=== PATIENT | male | born 1990 | race Caucasian/White ===

== ENCOUNTER 2020-11-04 10:04 | Emergency (ER) | payer SELFPAY ==
[~2020-11-04] VITALS: Ht 188 cm; Wt 100.0 kg
[~2020-11-04 10:04] MED LIST: ONDA4TAB10 PO
[2020-11-04 10:26] VITALS: BP 138/108
--- NOTE | 2020-11-04 10:26 | PHYS DOC ---
Past History Past Medical History: No Pertinent History Past Surgical History: No Surgical History Alcohol Use: None Drug Use: Marijuana, Methamphetamine Adult General Chief Complaint Chief Complaint: LOWER EXT PAIN HPI HPI Patient is a 29-year-old male who presents via EMS for right lower extremity cramp. Reports he took a cab to [place] [employer]. States "someone was following me" and so patient ran "at least a mile or 2" into local convenience store. Patient who ran into store any acute distress requested for ambulance/police authorities be notified to come get him and transported him to our facility for evaluation. Denies any known medical issues, takes no meds on a daily basis, admits to marijuana use only. Per police, patient is a known methamphetamine abuser. On arrival to our ER, patient complaining of transient right lower extremity cramp that occurred after extended time running. Has no other symptoms. Is not wanting us to do any work-up at this time, does not want any IV placed Review of Systems Review of Systems Fourteen body systems of review of systems have been reviewed. See HPI for pertinent positives and negative responses, other suarez all other systems are negative, non-pertinent or non-contributory Allergies Allergies Allergies Coded Allergies Type Severity Reaction Last Updated Verified No Known Drug Allergies 07/04/14 No Physical Exam Physical Exam Constitutional: Well developed, well nourished, nontoxic appearing. Appears disheveled and extremely anxious, appears under the influence of unknown substance HENT: Normocephalic, atraumatic, bilateral external ears normal, oropharynx dry, no oral exudates, nose normal. Eyes: PERRLA, EOMI, conjunctiva normal, no discharge. Neck: Normal range of motion, no tenderness, supple, no stridor. Cardiovascular: Heart rate tachycardic, sinus rhythm, no murmurs rubs or gallops Lungs & Thorax: Bilateral breath sounds clear to auscultation Abdomen: Bowel sounds normal, soft, no tenderness, no masses, no pulsatile masses. Nonsurgical abdomen, no peritoneal signs Skin: Warm, dry, no erythema, no rash. Back: No tenderness, no CVA tenderness. Extremities: No tenderness, no cyanosis, no clubbing, ROM intact, no edema. Neurologic: Alert and oriented X 3, grossly normal motor & sensory function, no focal deficits noted. Psychologic: Anxious affect and mood EKG EKG [] Radiology/Procedures Radiology/Procedures [] Heart Score HEART Score for Chest Pain: HEART Score for Chest Pain Response (Comments) Value History Slighlty/Non-Suspicious 0 Age < 45 0 Risk Factors 1 or 2 Risk Factors 1 Total 1 Risk Factors: Risk Factors: DM, Current or recent (<one month) smoker, HTN, HLP, family history of CAD, obesity. Risk Scores: Risk Factors: DM, Current or recent (<one month) smoker, HTN, HLP, family history of CAD, obesity. Course & Med Decision Making Course & Med Decision Making Patient seen on immediate ER arrival. After comprehensive history and physical exam, patient refused to have further diagnostic work-up performed. Patient refused placement of IV and states "I just want you to fix my leg, I do not want any labs or stuff ". I had an extensive discussion with the patient regarding the risks of leaving AMA including but not limited to , permanent disability, and worsening condition. Pt acknowledged the risks and agreed to take full responsibility. Pt was A&Ox4 and had full medical decision making capacity when they signed the AMA sheet. Risks and Recommendations: The risks of refusing recommended care that were disclosed and acknowledged by the patient include loss of current lifestyle, permanent mental impairment, and . The recommended medical care being refused has been discussed with the patient and is to stay for continued monitoring, workup, and possible treatment. Discharge Care: The patient understands they are welcome to return to the hospital at any time to receive the recommended care or any other care at any time, regardless of their ability to pay for such care. Dragon Disclaimer Dragon Disclaimer This electronic medical record was generated, in whole or in part, using a voice recognition dictation system. Departure Departure: Impression: Primary Impression: Left against medical advice Additional Impressions: Cramps of right lower extremity Tachycardia Disposition: AMA/ELOPED/LWBS Condition: STABLE Referrals: PCP,NO (PCP) Problem Qualifiers YOVANI GUERRERO DO Nov 04, 2020 10:26
== END 2020-11-04 10:20 | disposition left against medical advice (07) ==
LOC: ER 10:04
DX: M79.661 Pain in right lower leg (principal); R00.0 Tachycardia, unspecified; R25.2 Cramp and spasm; F12.90 Cannabis use, unspecified, uncomplicated; F15.90 Other stimulant use, unspecified, uncomplicated
CPT/HCPCS: 99283

== ENCOUNTER 2020-11-04 18:16 | Emergency (ER) | payer SELFPAY ==
[~2020-11-04] VITALS: Ht 188 cm; Wt 100.0 kg
[2020-11-04] MEDS ORDERED: IV RINGERS SOLUTION,LACTATED 1,000 ML IV ONE ×2 (19:30→23:00)
[2020-11-04 19:47] LABS: BASO % 0 % (0-3); EOS % 0 % (0-3); HEMATOCRIT 51.1 % (39.0-53.0); HEMOGLOBIN 17.3 g/dL (13.0-17.5); LYMPH # 1.8 x10^3/uL (1.0-4.8); LYMPH % 8 % (24-48); MEAN CORPUSCULAR HEMOGLOBIN 30 pg (25-35); MEAN CORPUSCULAR HGB CONC 34 g/dL (31-37); MEAN CORPUSCULAR VOLUME 90 fL (79-100); MONO # 2.2 x10^3/uL (0.0-1.1); MONO % 10 % (0-9); NEUT # 17.6 x10^3uL (1.8-7.7); NEUT % 81 % (31-73); PLATELET COUNT 258 x10^3/uL (140-400); RED CELL DISTRIBUTION WIDTH 12.4 % (11.5-14.5); WHITE BLOOD COUNT 21.6 x10^3/uL (4.0-11.0)
[2020-11-04 19:59] LABS: CREATININE 1.2 mg/dL (0.7-1.3); GFR 71.6; POTASSIUM 4.2 mmol/L (3.5-5.1)
[2020-11-04 20:00] LABS: BARBITURATES NEG (NEG); BENZODIAZEPINES NEG (NEG); CANNABINOIDS POS (NEG); COCAINE NEG (NEG); METHADONE NEG (NEG); OPIATES NEG (NEG); PHENCYCLIDINE NEG (NEG)
[2020-11-04 20:03] LABS: AMPHETAMINE/METHAMPHETAMINE POS (NEG)
[2020-11-04 20:05] LABS: ALBUMIN 3.9 g/dL (3.4-5.0); ALBUMIN/GLOBULIN RATIO 0.9 (1.0-1.7); TOTAL BILIRUBIN 2.2 mg/dL (0.2-1.0); TOTAL PROTEIN 8.4 g/dL (6.4-8.2)
--- NOTE | 2020-11-04 20:06 | PHYS DOC ---
Past History Past Medical History: No Pertinent History Past Surgical History: No Surgical History Alcohol Use: None Drug Use: Marijuana, Methamphetamine Adult General Chief Complaint Chief Complaint: PSYCH EVALUATION HPI HPI Patient is a 29-year-old male who presents with a chief complaint of anxiety and insomnia. States that his father on and since then has been on a substance abuse binge including marijuana, alcohol and methamp hetamine. States that he did smoke quite a bit of methamphetamine yesterday and is having a hard time sleeping. States he is also had some anxiety, and palpitations. Denies SI, HI or hallucinations. His friend who brought him in however thinks that he may have been having auditory hallucinations as he was hearing things while he was at his house that were not there but is not sure. Patient adamantly denies any audio, visual or tactile hallucinations. States he has not eaten anything in a few days and has not really had any thing to drink either. Denies any actual chest pain, shortness of breath, abdominal pain, nausea, vomiting, diarrhea. Denies any numbness/weakness/tingling. Denies any recent traumas, illnesses, fevers or known ill contacts. Review of Systems Review of Systems Review of systems otherwise unremarkable except noted in HPI. Current Medications Current Medications Current Medications Medications (Trade) Dose Ordered Sig/Rosa Start Time Stop Time Status Last Admin Dose Admin Lactated Ringer's 1,000 ml @ 1,000 mls/hr 1X ONCE 11/04/20 19:30 11/04/20 20:29 Lorazepam (Ativan Inj) 2 mg 1X ONCE 11/04/20 19:30 11/04/20 19:36 DC 11/04/20 19:28 2 MG Allergies Allergies Allergies Coded Allergies Type Severity Reaction Last Updated Verified No Known Drug Allergies 07/04/14 No Physical Exam Physical Exam Constitutional: Well developed, well nourished, no acute distress, non-toxic ap pearance. [] HENT: Normocephalic, atraumatic, bilateral external ears normal, oropharynx moist, no oral exudates, nose normal. [] Eyes: PERRLA, EOMI, conjunctiva normal, no discharge. [] Neck: Normal range of motion, no tenderness, supple, no stridor. [] Cardiovascular: Tachycardia, regular rhythm Lungs & Thorax: Bilateral breath sounds clear to auscultation [] Abdomen: Bowel sounds normal, soft, no tenderness, no masses, no pulsatile masses. [] Skin: Warm, dry, no erythema, no rash. Capillary refill approximately 3 seconds. [] Back: No tenderness, no CVA tenderness. [] Extremities: No tenderness, no cyanosis, no clubbing, ROM intact, no edema. [] Neurologic: Alert and oriented X 3, normal motor function, normal sensory function, no focal deficits noted. Psychologic: Patient anxious, agitated but cooperative,No SI, HI, hallucinations [] Current Patient Data Vital Signs Vital Signs Date Time Temp Pulse Resp B/P (MAP) Pulse Ox O2 Delivery O2 Flow Rate FiO2 11/04/20 18:58 97.0 128 26 161/115 (130) 98 Lab Results Laboratory Tests Test 11/04/20 18:47 White Blood Count 21.6 x10^3/uL (4.0-11.0) H Red Blood Count 5.70 x10^6/uL (4.30-5.70) Hemoglobin 17.3 g/dL (13.0-17.5) Hematocrit 51.1 % (39.0-53.0) Mean Corpuscular Volume 90 fL (79-100) Mean Corpuscular Hemoglobin 30 pg (25-35) Mean Corpuscular Hemoglobin Concent 34 g/dL (31-37) Red Cell Distribution Width 12.4 % (11.5-14.5) Platelet Count 258 x10^3/uL (140-400) Neutrophils (%) (Auto) 81 % (31-73) H Lymphocytes (%) (Auto) 8 % (24-48) L Monocytes (%) (Auto) 10 % (0-9) H Eosinophils (%) (Auto) 0 % (0-3) Basophils (%) (Auto) 0 % (0-3) Neutrophils # (Auto) 17.6 x10^3uL (1.8-7.7) H Lymphocytes # (Auto) 1.8 x10^3/uL (1.0-4.8) Monocytes # (Auto) 2.2 x10^3/uL (0.0-1.1) H Eosinophils # (Auto) 0.0 x10^3/uL (0.0-0.7) Basophils # (Auto) 0.0 x10^3/uL (0.0-0.2) Platelet Estimate Pending EKG EKG EKG with a rate of 121, QRS of 78, QTc of 457, no STEMI. [] Radiology/Procedures Radiology/Procedures [] Heart Score HEART Score for Chest Pain: HEART Score for Chest Pain Response (Comments) Value History Slighlty/Non-Suspicious 0 Age < 45 0 Risk Factors 1 or 2 Risk Factors 1 Total 1 Risk Factors: Risk Factors: DM, Current or recent (<one month) smoker, HTN, HLP, family history of CAD, obesity. Risk Scores: Risk Factors: DM, Current or recent (<one month) smoker, HTN, HLP, family history of CAD, obesity. Course & Med Decision Making Course & Med Decision Making Patient is a 29-year-old male who presents with anxiety, insomnia and palpitations after methamphetamine use Vital signs notable for tachycardia and hypertension. Physical exam noted above. No SI, HI or hallucinations. EKG noted. Patient placed on the monitor with IV access established and IV fluid given. Given dose of Ativan for anxiety and agitation. Laboratory analysis notable for leukocytosis mildly elevated CK but sign ificantly less than 5000 and patient has normal potassium and creatinine. Patient pulled his IV out and is refusing to allow another IV placed. Discussed with patient the need for continued fluid hydration given his elevated labs to prevent kidney injury but patient states he does not care he is not getting another IV. Patient stated he just wanted to sleep. Patient allowed to sleep in the emergency department for several hours. At approximately the 7-1/2 to 8- hour becky patient was awake and able to take p.o. in the form of Dr. Miller, 2 cups of water some chips and a candy bar. Patient stated he was feeling much better after the sleep. Discussed again the need for some IV fluid hydration and elevated ck as well as leukocytosis, but patient stated he was fine and wanted to call his uncle to be discharged home. Discussed the risks of elevated white blood cell count, CK and possibility of infection and renal damage. On reassessment, vital signs improved significantly. Patient stated he would just drink plenty of fluids, eat healthy and quit using methamphetamine. Advised to follow-up as soon as he can with a primary care physician and set up a post ER follow-up visit. Patient grateful for ER care, verbalized understanding and agreed with plan of discharge. [] Dragon Disclaimer Dragon Disclaimer This electronic medical record was generated, in whole or in part, using a voice recognition dictation system. Departure Departure: Disposition: 01 DC HOME SELF CARE/HOMELESS Condition: GOOD Referrals: PCP,NOEL (PCP) VERONIKA PAPPAS MD Nov 04, 2020 20:05
[2020-11-04 20:28] LABS: BILIRUBIN,URINE MOD (NEG); CLARITY,URINE CLEAR; COLOR,URINE BROWN; GLUCOSE,URINE NEG (NEG); NITRITE,URINE POS (NEG)
[2020-11-04 20:29] LABS: BACTERIA,URINE MOD /HPF (0-FEW); SQUAMOUS EPITHELIAL CELL,UR MOD /LPF
[2020-11-04 22:09] LABS: % LYMPHS 7 % (24-48); % MONOS 10 % (0-10); % SEGS 83 % (35-66); PLT ESTIMATE ADEQUATE (ADEQUATE)
--- NOTE | 2020-11-05 01:50 | EKG ---
[facility] ED [facility] [place] [id number] Test Date: 2020-11-04 Test Time: 18:42:27 Pat Name: JOSELO JACKSON Department: Room: Gender: M Analytical Lead: : 1990 Requested By: VERONIKA PAPPAS Order Number: [id number] Reading MD: Measurements Intervals [place] Rate: 121 P: 49 IA: 118 QRS: 34 QRSD: 78 T: 66 QT: 320 QTc: 457 Interpretive Statements SINUS TACHYCARDIA LEFT ATRIAL ABNORMALITY ABNORMAL ECG RI6.02 No previous ECG available for comparison
[2020-11-05 02:00] VITALS: BP 141/105
== END 2020-11-05 02:55 | disposition home or self-care (01) ==
LOC: ER 18:16
DX: F41.8 Other specified anxiety disorders (principal); R00.2 Palpitations; G47.00 Insomnia, unspecified; F12.90 Cannabis use, unspecified, uncomplicated; F15.90 Other stimulant use, unspecified, uncomplicated
CPT/HCPCS: 36415; 80053; 80307; 81001; 82550; 84484; 85007; 85025; 87086; 93005; 96374; 96376; 99284; J2060; J7120

== ENCOUNTER 2020-11-05 18:05 | Emergency (ER) | payer SELFPAY ==
[~2020-11-05] VITALS: Ht 188 cm; Wt 112.8 kg
--- NOTE | 2020-11-05 18:55 | PHYS DOC ---
Past History Past Medical History: No Pertinent History Past Surgical History: No Surgical History Alcohol Use: None Drug Use: Marijuana, Methamphetamine Adult General Chief Complaint Chief Complaint: SUICIDAL IDEATION HPI HPI Patient is a 29-year-old male presents emergency department reporting that he would like psychiatric treatment. Patient does deny homicidal or suicidal ideation. Patient states that he has used marijuana and meth in the past, patie nt states that he recently lost his father on October 20, 2020 and just buried him last . Patient states that he has gone in a downward mcgrath since then. Patient denies any recent fever chills, chest pains, cough, congestion, shortness of breath, lesions of his skin, skin rashes, abdominal pains, nausea, vomiting, or diarrhea. Patient denies any physical ailments, patient states that he has mental health problems and he is seeking help to get his life back on track. Patient did have his friend in the room who indicated that he was both suicidal and homicidal. Patient was adamant that he is not homicidal nor was he suicidal. Review of Systems Review of Systems 14 body systems of review of systems have been reviewed. See HPI for pertinent positives and negative responses, otherwise all other systems are negative, nonpertinent or noncontributory. Allergies Allergies Allergies Coded Allergies Type Severity Reaction Last Updated Verified No Known Drug Allergies 07/04/14 No Physical Exam Physical Exam Constitutional: Well developed, well nourished, no acute distress, non-toxic appearance. HENT: Normocephalic, atraumatic, bilateral external ears normal, oropharynx moist, no oral exudates, nose normal. Eyes: PERRLA, EOMI, conjunctiva normal, no discharge. Neck: Normal range of motion, no tenderness, supple, no stridor. Cardiovascular:Heart rate regular rhythm, no murmur Lungs & Thorax: Bilateral breath sounds clear to auscultation Abdomen: Bowel sounds normal, soft, no tenderness, no masses, no pulsatile masses. Skin: Warm, dry, no erythema, no rash. Back: No tenderness, no CVA tenderness. Extremities: No tenderness, no cyanosis, no clubbing, ROM intact, no edema. Neurologic: Alert and oriented X 3, normal motor function, normal sensory function, no focal deficits noted. Psychologic: Affect flat, and a depressive type state, judgment abnormal as evidenced by methamphetamine use to cope with family loss. Current Patient Data Vital Signs Vital Signs Date Time Temp Pulse Resp B/P (MAP) Pulse Ox O2 Delivery O2 Flow Rate FiO2 11/05/20 18:23 98.1 112 16 158/86 (110) 98 Room Air Lab Results Laboratory Tests Test 11/05/20 18:44 11/05/20 19:10 White Blood Count 16.9 x10^3/uL Red Blood Count 5.61 x10^6/uL Hemoglobin 17.0 g/dL Hematocrit 50.4 % Mean Corpuscular Volume 90 fL Mean Corpuscular Hemoglobin 30 pg Mean Corpuscular Hemoglobin Concent 34 g/dL Red Cell Distribution Width 12.6 % Platelet Count 245 x10^3/uL Neutrophils (%) (Auto) 79 % Lymphocytes (%) (Auto) 12 % Monocytes (%) (Auto) 9 % Eosinophils (%) (Auto) 0 % Basophils (%) (Auto) 1 % Neutrophils # (Auto) 13.3 x10^3uL Lymphocytes # (Auto) 2.0 x10^3/uL Monocytes # (Auto) 1.5 x10^3/uL Eosinophils # (Auto) 0.0 x10^3/uL Basophils # (Auto) 0.1 x10^3/uL Platelet Estimate Pending Sodium Level 132 mmol/L Potassium Level 4.4 mmol/L Chloride Level 95 mmol/L Carbon Dioxide Level 26 mmol/L Anion Gap 11 Blood Urea Nitrogen 23 mg/dL Creatinine 1.0 mg/dL Estimated GFR (Cockcroft-Gault) 88.3 BUN/Creatinine Ratio 23 Glucose Level 88 mg/dL Calcium Level 9.0 mg/dL Total Bilirubin 1.7 mg/dL Aspartate Amino Transf (AST/SGOT) 99 U/L Alanine Aminotransferase (ALT/SGPT) 50 U/L Alkaline Phosphatase 80 U/L Total Protein 8.2 g/dL Albumin 3.8 g/dL Albumin/Globulin Ratio 0.9 Salicylates Level 3.7 mg/dL Salicylate Last Dose Date 11/05/20 Salicylate Last Dose Time 1830 Urine Opiates Screen Neg Urine Methadone Screen Neg Acetaminophen Level < 2.0 mcg/mL Acetaminophen Last Dose Date 11/05/20 Acetaminophen Last Dose Time 1830 Urine Barbiturates Neg Urine Phencyclidine Screen Neg Urine Amphetamine/Methamphetamine Pos Urine Benzodiazepines Screen Neg Urine Cocaine Screen Neg Urine Cannabinoids Screen Pos Ethyl Alcohol Level < 10 mg/dL Urine Ethyl Alcohol Neg SARS-CoV-2 Antigen (Rapid) Negative EKG EKG [] Radiology/Procedures Radiology/Procedures [] Heart Score Risk Factors: Risk Factors: DM, Current or recent (<one month) smoker, HTN, HLP, family history of CAD, obesity. Risk Scores: Risk Factors: DM, Current or recent (<one month) smoker, HTN, HLP, family history of CAD, obesity. Course & Med Decision Making Course & Med Decision Making Pertinent Labs and Imaging studies reviewed. (See chart for details) 29-year-old presents emergency department seeking psychiatric help. Patient states his father on 2019. Buried him last . Has gone a downward spiral since then. Patient admits of smoking marijuana and using methamphetamines. Patient states that he fears some of the drug dealers he has purchased his illicit drugs through our coming after him. Patient denies homicidal or suicidal ideations. Patient did have a friend in the room who stated he was there for support, this friend stated that the patient is in fact suicidal and homicidal. Patient lives with his aunt and uncle. I interviewed and medical aunts name Larisa Moya states that the patient told her directly he stated to her "I will not make it to age 30 just wait and see ", patient's uncle Giorgi Moya stated the patient told him "I will not be around much longer ". Both the patient's had medical fear that the patient is making the statements as statements of suicidal ideation. A psychiatric work-up was initiated in the emergency department to include labs, urine assay. Discussed patient case with PAT lift team technician Ghassan whom stated she would interview the patient and initiate care after her assessment. Discussed with PAT lift team technician Ghassan who stated the patient meets mental health treatment criteria and will attempt to secure placement at [facility], patient does not meet involuntary placement at this time as he is voluntarily admitting himself into mental health treatment. Awaiting acceptance from the [facility] at this time. Reviewed and discussed patient case with ED attending Dr. Peña. Patient is awaiting placement at [facility]. Dr. Peña has assumed patient care at this time. Dragon Disclaimer Dragon Disclaimer This electronic medical record was generated, in whole or in part, using a voice recognition dictation system. Departure Departure: Referrals: PCP,NOEL (PCP) JOSELO MCCORMACK APRN Nov 05, 2020 18:55
[2020-11-05 19:14] LABS: GFR 88.3; POTASSIUM 4.4 mmol/L (3.5-5.1)
[2020-11-05 19:15] LABS: BASO # 0.1 x10^3/uL (0.0-0.2); BASO % 1 % (0-3); EOS % 0 % (0-3); HEMATOCRIT 50.4 % (39.0-53.0); LYMPH % 12 % (24-48); MEAN CORPUSCULAR HEMOGLOBIN 30 pg (25-35); MEAN CORPUSCULAR HGB CONC 34 g/dL (31-37); MEAN CORPUSCULAR VOLUME 90 fL (79-100); MONO # 1.5 x10^3/uL (0.0-1.1); MONO % 9 % (0-9); NEUT # 13.3 x10^3uL (1.8-7.7); NEUT % 79 % (31-73); PLATELET COUNT 245 x10^3/uL (140-400); RED BLOOD COUNT 5.61 x10^6/uL (4.30-5.70); RED CELL DISTRIBUTION WIDTH 12.6 % (11.5-14.5); WHITE BLOOD COUNT 16.9 x10^3/uL (4.0-11.0)
[2020-11-05 19:16] LABS: BARBITURATES NEG (NEG); BENZODIAZEPINES NEG (NEG); CANNABINOIDS POS (NEG); COCAINE NEG (NEG); METHADONE NEG (NEG); OPIATES NEG (NEG); PHENCYCLIDINE NEG (NEG)
[2020-11-05 19:17] LABS: AMPHETAMINE/METHAMPHETAMINE POS (NEG)
[2020-11-05 19:18] LABS: ACETAMIN < 2.0 mcg/mL (10-30); SALIC 3.7 mg/dL (2.8-20.0)
[2020-11-05 19:19] LABS: ETHANOL < 10 mg/dL (0-10)
[2020-11-05 19:20] LABS: ALBUMIN 3.8 g/dL (3.4-5.0); ALBUMIN/GLOBULIN RATIO 0.9 (1.0-1.7); TOTAL BILIRUBIN 1.7 mg/dL (0.2-1.0); TOTAL PROTEIN 8.2 g/dL (6.4-8.2)
[2020-11-05 22:02] LABS: % LYMPHS 10 % (24-48); % MONOS 6 % (0-10); % SEGS 84 % (35-66)
[2020-11-05 22:03] LABS: PLT ESTIMATE ADEQUATE (ADEQUATE)
[2020-11-06 08:06] VITALS: BP 146/88
[2020-11-06] MEDS ORDERED: NICOTINE 14MG PATCH. TD PRN (08:15)
[2020-11-06] MEDS ORDERED: NICOTINE 21MG PATCH. TD ONE (08:17)
== END 2020-11-06 08:26 ==
LOC: ER 18:05
DX: Z00.8 Encounter for other general examination (principal); F12.10 Cannabis abuse, uncomplicated; F15.10 Other stimulant abuse, uncomplicated; Z20.822 Contact with and (suspected) exposure to COVID-19
CPT/HCPCS: 36415; 80053; 80307; 80329; 85007; 85025; 87426; 99285; C9803; G0480; U0003

== ENCOUNTER 2021-04-02 02:13 | Emergency (ER) | payer SELFPAY ==
[~2021-04-02] VITALS: Ht 188 cm; Wt 112.8 kg
[2021-04-02 02:19] VITALS: BP 149/100
[2021-04-02] MEDS ORDERED: CEPH500C PO (02:41)
--- NOTE | 2021-04-02 02:42 | PHYS DOC ---
Past History Past Medical History: No Pertinent History Past Surgical History: No Surgical History Alcohol Use: None Drug Use: Marijuana, Methamphetamine Adult General Chief Complaint Chief Complaint: LOWER EXTREMITY SWELLING HPI HPI Patient is a 30-year-old homeless male who presents to the emergency department with a chief complaint of redness, and swelling in his right lower extremity. States he is homeless and walks around a lot in his shoes do not fit well and he has a blister on right heel that started a couple days ago. Denies any fevers, chest pain, shortness of breath, abdominal pain, nausea, vomiting. Did request something to drink and a call to help [facility] [place] Review of Systems Review of Systems Review of systems otherwise unremarkable except noted in HPI Allergies Allergies Allergies Coded Allergies Type Severity Reaction Last Updated Verified No Known Drug Allergies 07/04/14 No Physical Exam Physical Exam Constitutional: Well developed, well nourished, no acute distress, non-toxic appearance. [] HENT: Normocephalic, atraumatic, Eyes: conjunctiva normal, no discharge. [] Cardiovascular:Heart rate regular rhythm, no murmur [] Lungs & Thorax: No respiratory distress Skin: Warm, dry, no erythema, no rash. [] Extremities: Mild right lower extremity erythema at and around the right ankle with a 2 cm blister that has burst. Neurovascular exam intact. Range of motion intact. Neurologic: Alert and oriented X 3, no focal deficits noted. [] Psychologic: Affect normal, judgement normal, mood normal. [] EKG EKG [] Radiology/Procedures Radiology/Procedures [] Heart Score C/O Chest Pain: No Risk Factors: Risk Factors: DM, Current or recent (<one month) smoker, HTN, HLP, family history of CAD, obesity. Risk Scores: Risk Factors: DM, Current or recent (<one month) smoker, HTN, HLP, family history of CAD, obesity. Course & Med Decision Making Course & Med Decision Making Patient is a 30-year-old male who presents with right lower extremity cellulitis Vital signs not concerning. Physical exam noted above. Patient given dry socks, symptoms drinking a meal. Started on Keflex in the ED. Gave Tylenol and ibuprofen. Discussed all findings with patient and advised a course of Keflex over the next 7 days. Advised to keep the area clean, and dry. Given resources for local primary care physicians and free clinics to follow-up. Gave return precautions to the ED. Patient grateful, verbalized understanding and agreed with plan of discharge. [] Dragon Disclaimer Dragon Disclaimer This electronic medical record was generated, in whole or in part, using a voice recognition dictation system. Departure Departure: Impression: Primary Impression: Cellulitis Disposition: HOME / SELF CARE / HOMELESS Condition: GOOD Referrals: PCP,NO (PCP) SHAHBAZ LOOMIS MD Patient Instructions: Cellulitis, [id number], Wound Care, [id number] Additional Instructions: Please read all the attached information very carefully. Please take all of your antibiotics as prescribed. Please keep the area clean and dry. You were given clean socks here in the emergency department. You are also given resources for local primary care physicians and free clinics. Please contact them as soon as possible to establish care and set up a follow-up visit for wound check. Please come back to the emergency department immediately with new or concerning symptoms as discussed. Scripts Cephalexin (CEPHALEXIN) 500 Mg Capsule 1 CAP PO TID for cellulitis for 7 Days, #21 CAP Prov: VERONIKA PAPPAS MD 04/02/21 VEROINKA PAPPAS MD Apr 02, 2021 02:42
[2021-04-02] MEDS ORDERED: ACETAMINOPHEN 500 MG TABLET PO ONE (03:00)
[2021-04-02] MEDS ORDERED: IBUPROFEN 600 MG TABLET. PO ONE (03:00)
[2021-04-02] MEDS ORDERED: CEPHALEXIN 250 MG CAPSULE PO ONE (03:00)
== END 2021-04-02 03:00 | disposition home or self-care (01) ==
LOC: ER 02:13
DX: L03.115 Cellulitis of right lower limb (principal); F12.10 Cannabis abuse, uncomplicated; F15.10 Other stimulant abuse, uncomplicated; Z59.0 Homelessness
CPT/HCPCS: 99284-25